=== PATIENT | female | born 1955 | race Caucasian/White ===

== ENCOUNTER → 2017-03-13 | Outpatient (CLI) | payer OTHER ==
[~2017-03-13] MED LIST: FLX10 PO; LRT5 PO
== END | disposition home or self-care (01) ==
LOC: C.LAB1850 15:21
PROVIDERS: ATTEND Internal Medicine
DX: E06.3 Autoimmune thyroiditis (principal)

== ENCOUNTER 2017-10-06 13:10 | Emergency (ER) | payer OTHER ==
[~2017-10-06] VITALS: Ht 157.5 cm; Wt 68.9 kg
[2017-10-06 13:14] VITALS: Ht 157.5 cm; Wt 68.9 kg
[2017-10-06] MEDS ORDERED: SODIUM CHLORIDE 0.9% 1000ML 2,000 ML IV STA (13:23)
[2017-10-06] MEDS ORDERED: ONDANSETRON INJ 2 MG/ML 2 ML VIAL IV STA (13:23)
[2017-10-06 13:45] LABS: BASO % 0.4 %; BASO ABS # 0.02 K/uL (0-0.2); EOS % 3.1 %; EOS ABS # 0.17 K/uL (0-0.5); HEMATOCRIT 43.5 % (37-47); HEMOGLOBIN 15.2 g/dL (12.0-16.0); IG# 0.01 K/uL (0.00-0.02); LYMPH % 38.4 %; LYMPH ABS # 2.14 K/uL (1.2-3.4); MEAN CELL VOLUME 89.9 fL (80-100); MEAN CORPUSCULAR HEMOGLOBIN 31.4 pg (25-34); MEAN CORPUSCULAR HGB CONC 34.9 g/dl (32-36); MEAN PLATELET VOLUME 9.7 fL (7.4-10.4); MONO % 12.7 %; MONO ABS # 0.71 K/uL (0.11-0.59); NEUT % 45.2 %; NEUT ABS # 2.52 K/uL (1.4-6.5); PLATELET COUNT 259 K/uL (130-400); RED CELL DISTRIBUTION WIDTH SD 42.5 fL (36.4-46.3); WHITE BLOOD COUNT 5.57 K/uL (4.8-10.8)
[2017-10-06] MEDS ORDERED: ACETAMINOPHEN 500 MG TAB PO STA (13:45)
[2017-10-06] MEDS ORDERED: LEVO75CA2 PO (13:46)
[2017-10-06 14:10] LABS: ALBUMIN 3.7 gm/dl (3.4-5.0); CALCIUM 8.7 mg/dl (8.5-10.1); CREATININE 0.88 mg/dl (0.60-1.20); POTASSIUM 3.3 mmol/L (3.5-5.1)
[2017-10-06] MEDS ORDERED: OPTIRAY 320 IV PRN (14:45)
[2017-10-06] MEDS ORDERED: POTASSIUM CHLORIDE 10 MEQ TABCR PO STA (15:17)
[2017-10-06 15:38] VITALS: BP 128/73; PULSE 70; TEMP 36.8; O2SAT 99
--- NOTE | 2017-10-06 17:08 | EMERGENCY ROOM VISIT NOTE ---
History Report prepared by Kel: Aubrey Boateng Under the Supervision of: Jane ChO. First contact with patient: 13:18 Chief Complaint: DIARRHEA Stated Complaint: SEVERE DIARRHEA History of Present Illness The patient is a 62 year old female who presents to the Emergency Room with complaints of worsening diarrhea that began Thursday, 3 days ago. The patient states that she ate "fried vegan food" on Thursday and then began to experience loose stools. On Thursday her symptoms worsened to "raging" diarrhea. She estimates that she has had 5 loose bowel movements so far today. The patient also notes that she felt feverish last night, but did not record any febrile temperatures. She is also having some abdominal pain that she states is localized under her left breast. Other members of her family did eat the same food and are not sick. She denies any recent trips/travels, drinking from stream /well water, or contacts with sick individuals. Source of History: patient Onset: 3 days ago Position: abdomen Symptom Intensity: "raging" Quality: other (Diarrhea) Timing: other (5 bouts of diarrhea today) Associated Symptoms: + abdominal pain Review of Systems See HPI for pertinent positives & negatives. A total of 10 systems reviewed and were otherwise negative. Past Medical & Surgical Hx of hysterectomy and thyroidectomy. Social History Smoking Status: Never Smoker Drug Use: none Marital Status: Housing Status: lives with significant other Occupation Status: retired Current/Historical Medications Scheduled Levothyroxine Sodium (Tirosint), 75 MCG PO DAILY Allergies Coded Allergies: Codeine (Unverified Allergy, Mild, 10/06/17) Sulfa Antibiotics (Unverified Allergy, Unknown, ., 10/06/17) Physical Exam Vital Signs Date Time Temp Pulse Resp B/P (MAP) Pulse Ox O2 Delivery O2 Flow Rate FiO2 10/06/17 15:38 36.8 70 18 128/73 99 10/06/17 14:36 70 18 128/73 99 Room Air 10/06/17 13:14 36.8 75 18 125/82 99 Room Air Physical Exam GENERAL: Sitting up in bed, alert, well appearing, well nourished, no distress, non-toxic EYE EXAM: normal conjunctiva. OROPHARYNX: no exudate, no erythema, lips, buccal mucosa, and tongue normal and mucous membranes are moist NECK: supple, no nuchal rigidity, no adenopathy, non-tender LUNGS: Clear to auscultation. Normal chest wall mechanics HEART: no murmurs, S1 normal and S2 normal ABDOMEN: abdomen soft, faint diffuse tenderness, normo-active bowel sounds, no masses, no rebound or guarding. BACK: Back is symmetrical on inspection and there is no deformity, no midline tenderness, no CVA tenderness. SKIN: no rashes and no bruising UPPER EXTREMITIES: upper extremities are grossly normal. LOWER EXTREMITIES: No pitting edema. NEURO EXAM: Normal sensorium, cranial nerves II-XII grossly intact, normal speech, no gross weakness of arms, no gross weakness of legs. Medical Decision & Procedures Laboratory Results 10/06/17 13:30 Red Blood Count 4.84, Mean Corpuscular Volume 89.9, Mean Corpuscular Hemoglobin 31.4, Mean Corpuscular Hemoglobin Concent 34.9, Mean Platelet Volume 9.7, Neutrophils (%) (Auto) 45.2, Lymphocytes (%) (Auto) 38.4, Monocytes (%) (Auto) 12.7, Eosinophils (%) (Auto) 3.1, Basophils (%) (Auto) 0.4, Neutrophils # (Auto ) 2.52, Lymphocytes # (Auto) 2.14, Monocytes # (Auto) 0.71, Eosinophils # (Auto ) 0.17, Basophils # (Auto) 0.02 10/06/17 13:30 Test 10/06/17 13:15 10/06/17 13:30 Urine Color DK YELLOW Urine Appearance CLEAR (CLEAR) Urine pH 5.5 (4.5-7.5) Urine Specific [place] 1.024 (1.000-1.030) Urine Protein NEG (NEG) Urine Glucose (UA) NEG (NEG) Urine Ketones 3+ (NEG) Urine Occult Blood NEG (NEG) Urine Nitrite NEG (NEG) Urine Bilirubin NEG (NEG) Urine Urobilinogen NEG (NEG) Urine Leukocyte Esterase TRACE (NEG) Urine WBC (Auto) 1-5 /hpf (0-5) Urine RBC (Auto) 0-4 /hpf (0-4) Urine Hyaline Casts (Auto) 1-5 /lpf (0-5) Urine Epithelial Cells (Auto) >30 /lpf (0-5) Urine Bacteria (Auto) NEG (NEG) Urine Test NEG (NEG) White Blood Count 5.57 K/uL (4.8-10.8) Red Blood Count 4.84 M/uL (4.2-5.4) Hemoglobin 15.2 g/dL (12.0-16.0) Hematocrit 43.5 % (37-47) Mean Corpuscular Volume 89.9 fL (80-100) Mean Corpuscular Hemoglobin 31.4 pg (25-34) Mean Corpuscular Hemoglobin Concent 34.9 g/dl (32-36) Platelet Count 259 K/uL (130-400) Mean Platelet Volume 9.7 fL (7.4-10.4) Neutrophils (%) (Auto) 45.2 % Lymphocytes (%) (Auto) 38.4 % Monocytes (%) (Auto) 12.7 % Eosinophils (%) (Auto) 3.1 % Basophils (%) (Auto) 0.4 % Neutrophils # (Auto) 2.52 K/uL (1.4-6.5) Lymphocytes # (Auto) 2.14 K/uL (1.2-3.4) Monocytes # (Auto) 0.71 K/uL (0.11-0.59) Eosinophils # (Auto) 0.17 K/uL (0-0.5) Basophils # (Auto) 0.02 K/uL (0-0.2) RDW Standard Deviation 42.5 fL (36.4-46.3) RDW Coefficient of Variation 13.0 % (11.5-14.5) Immature Granulocyte % (Auto) 0.2 % Immature Granulocyte # (Auto) 0.01 K/uL (0.00-0.02) Anion Gap 9.0 mmol/L (3-11) Est Creatinine Clear Calc Drug Dose 58.8 ml/min Estimated GFR () 80.5 Estimated GFR (Non- 69.4 BUN/Creatinine Ratio 16.6 (10-20) Calcium Level 8.7 mg/dl (8.5-10.1) Total Bilirubin 1.1 mg/dl (0.2-1) Direct Bilirubin 0.2 mg/dl (0-0.2) Aspartate Amino Transf (AST/SGOT) 24 U/L (15-37) Alanine Aminotransferase (ALT/SGPT) 36 U/L (12-78) Alkaline Phosphatase 81 U/L (45-117) Total Protein 8.0 gm/dl (6.4-8.2) Albumin 3.7 gm/dl (3.4-5.0) Lipase 106 U/L (73-393) Date/Time Source Procedure Growth Status 10/06/17 13:15 Stool C.difficile Toxin B Gene (PCR) - Final No C. difficile toxin B gene detected Complete Laboratory results per my review. Medications Administered Medications (Trade) Dose Ordered Sig/Yvan Route Start Time Stop Time Status Last Admin Dose Admin Sodium Chloride 2,000 ml @ 999 mls/hr Q2H1M STAT IV 10/06/17 13:23 10/06/17 15:23 DC 10/06/17 13:42 999 MLS/HR Ondansetron HCl (Zofran Inj) 4 mg NOW STAT IV 10/06/17 13:23 10/06/17 13:25 DC 10/06/17 13:42 4 MG Acetaminophen (Tylenol Tab) 1,000 mg NOW STAT PO 10/06/17 13:45 10/06/17 13:46 DC 10/06/17 13:49 1,000 MG ED Course ED COURSE: Vital signs were reviewed and showed normal vitals. The patients medical record was reviewed The above diagnostic studies were performed and reviewed. ED treatments and interventions as stated above. 1319: The patient was evaluated in room B9. A complete history and physical examination was performed. 1323: Ordered Zofran 4 mg IV, Sodium Chloride 2000 mL @ 999 mL/hr IV. 1345: Ordered Tylenol 1000 mg PO. 1509: I offered the patient at CT at this time. She states that due to her alopecia she does not want to lose any more hair. She declines the CT scan. 1517: Ordered Potassium Chloride 40 meq PO. 1532: Upon reevaluation, the patient is resting in bed. I discussed my findings with the patient and she understands and agrees with the treatment plan. Based on the patients age, coexisting illnesses, exam and lab findings the decision to treat as an outpatient was made. The patient remained stable while under my care. The patient appeared well at the time of discharge. Medical Decision Differential diagnoses includes but is not limited to gastritis, peptic ulcer disease, GERD, gallbladder disease, pancreatitis, small bowel obstruction, acute coronary syndrome, pericarditis, ischemic bowel, irritable bowel disease, irritable bowel syndrome, appendicitis, diverticulitis, malignancy, hernia, urinary tract infection, torsion, /ectopic , perforation, trauma, infectious. Patient is a 62-year-old female who presents the ER for persistent diarrhea which is been present since Thursday. She notes that today she is very on 5 times. Vitals are unremarkable. CBC was unremarkable. BMP with mild hypokalemia. LFTs, bilirubin lipase were normal. UA was negative. was negative. Stool culture pending with exception of a negative C. difficile. Patient declined CT and x-rays of her abdomen. She was agreeable to Tylenol. Repeat exam was fairly benign. She is updated bedside. Discharge follow-up with PCP as an outpatient. Stool cultures pending. Discussed with Pt concerning signs and symptoms to watch out for. Pt was instructed to follow up with their PCP and discussed with the patient their option to return to the ED at anytime for persistent or worsening symptoms. The appropriate anticipatory guidance and out-patient management, including indications for return to the emergency department, were explained at length to the patient and understood. Medication Reconcilliation Current Medication List: was personally reviewed by me Blood Pressure Screening Patient's blood pressure: Normal blood pressure Impression Primary Impression: Diarrhea Additional Impression: Hypokalemia Scribe Attestation The scribe's documentation has been prepared under my direction and personally reviewed by me in its entirety. I confirm that the note above accurately reflects all work, treatment, procedures, and medical decision making performed by me. Departure Information Dispostion Home / Self-Care Referrals No Doctor, Assigned (PCP) Forms HOME CARE DOCUMENTATION FORM, IMPORTANT VISIT INFORMATION, WORK / SCHOOL INSTRUCTIONS Patient Instructions [facility] Additional Instructions Please follow up with your primary care doctor with in the next 24 hours. Any worsening of your symptoms, please return to the ED immediately. This includes any fevers greater than 100.4, worsening pain, chest pain, shortness breath, persistent nausea, vomiting, unable to eat or drink, or any other concerning signs or symptoms from your standpoint. Please take Tylenol or Motrin as needed for pain. Please try to refrain from any antimotility i.e. Imodium until all stool cultures are resulted. Problem Qualifiers Primary Impression: Diarrhea Diarrhea type: unspecified type Qualified Codes: R19.7 - Diarrhea, unspecified
--- NOTE | 2017-10-09 15:53 | Pharmacy Progress Note ---
ED Pharmacist Culture FollowUp Date of Service: Oct 09, 2017. Talked to Dr. Braswell regarding positive result for Giardia- to be prescribed tinidazole 2 g orally as a single dose. Called [facility] and they did have it in stock. Called to discuss with patient. Patient understood instructions but was disconnected. Patient called back and said that [facility] had already called and that a prescription was ready. I did had not yet called in a prescription so I called [facility] to see what the prescription was for and the prescriber. The prescription was for metronidazole 500 mg BID x [address] Muñoz (sp?). Called patient back and let her know that a different medication had been called in that is similar by her family doctor. She was okay with getting the prescription from her family doctor. Will not call in prescription for tinidazole.
== END 2017-10-06 15:39 | disposition home or self-care (01) ==
LOC: C.EDB 13:11
DX: R19.7 Diarrhea, unspecified (principal); E87.6 Hypokalemia; Z90.710 Acquired absence of both cervix and uterus; E89.0 Postprocedural hypothyroidism; Z79.899 Other long term (current) drug therapy; Z88.5 Allergy status to narcotic agent; Z88.2 Allergy status to sulfonamides

== ENCOUNTER → 2017-10-14 | Outpatient (CLI) | payer OTHER ==
[~2017-10-14] MED LIST changes: -FLX10 PO; +LEVO75CA2 PO; -LRT5 PO
[2017-10-14 18:03] LABS: ALBUMIN 3.2 gm/dl (3.4-5.0); ALKALINE PHOSPHATASE 62 U/L (45-117); ALT/SGPT 44 U/L (12-78); AST/SGOT 33 U/L (15-37); BLOOD UREA NITROGEN 14 mg/dl (7-18); CALCIUM 8.2 mg/dl (8.5-10.1); CARBON DIOXIDE 30 mmol/L (21-32); CREATININE 0.66 mg/dl (0.60-1.20); GLUCOSE 88 mg/dl (70-99); POTASSIUM 3.7 mmol/L (3.5-5.1); SODIUM 143 mmol/L (136-145); TOTAL PROTEIN 6.4 gm/dl (6.4-8.2)
== END | disposition home or self-care (01) ==
LOC: C.LAB1850 16:34
PROVIDERS: ATTEND Internal Medicine
DX: E87.6 Hypokalemia (principal); E87.1 Hypo-osmolality and hyponatremia

== ENCOUNTER 2018-12-12 16:39 | Observation (INO) ==
[2018-12-12] MEDS ORDERED: ASPIRIN CHEW 324 MG PO STA (18:05)
[2018-12-12 18:22] LABS: Basophils # (auto) 0.02 K/uL (0-0.2); Basophils % (auto) 0.2 %; Eosinophils # (auto) 0.17 K/uL (0-0.5); Hematocrit (blood only) 42.6 % (37-47); Hemoglobin 14.4 g/dL (12.0-16.0); Immature Granulocytes # (auto) 0.02 K/uL (0.00-0.02); Immature Granulocytes % (auto) 0.2 %; Lymphocytes # (auto) 2.59 K/uL (1.2-3.4); Lymphocytes % (auto) 30.6 %; Mean Corpuscular Hemoglobin 30.8 pg (25-34); Mean Corpuscular Hgb Conc 33.8 g/dL (32-36); Mean Corpuscular Volume 91.2 fL (80-100); Monocytes # (auto) 0.54 K/uL (0.11-0.59); Monocytes % (auto) 6.4 %; Neutrophils # (auto) 5.13 K/uL (1.4-6.5); Neutrophils % (auto) 60.6 %; Platelet Count 306 K/uL (130-400); RDW Coefficient of Variation 12.7 % (11.5-14.5); RDW Standard Deviation 42.1 fL (36.4-46.3); Red Blood Count 4.67 M/uL (4.2-5.4); White Blood Count 8.47 K/uL (4.8-10.8)
[2018-12-12 18:36] LABS: Prothrombin Time 10.2 Seconds (9.0-12.0)
[2018-12-12 18:38] LABS: Alanine Aminotransferase 24 U/L (12-78); Albumin Level 3.9 gm/dl (3.4-5.0); Aspartate Aminotransferase 16 U/L (15-37); Blood Urea Nitrogen 14 mg/dl (7-18); Calcium 8.6 mg/dl (8.5-10.1); Carbon Dioxide 29 mmol/L (21-32); Chloride 105 mmol/L (98-107); Creatinine Clr Calc Pharmacy 50.6 ml/min; D Dimer 800 ug/L FEU (0-500); Est GFR (African American) 66.8; Est GFR (Non-African American) 57.7; Glucose 82 mg/dl (70-99); Lipase 171 U/L (73-393); Magnesium 2.3 mg/dl (1.8-2.4); Potassium 3.3 mmol/L (3.5-5.1); Sodium 138 mmol/L (136-145)
[2018-12-12 18:49] LABS: Alkaline Phosphatase 83 U/L (45-117); Bilirubin,Total 0.8 mg/dl (0.2-1); Globulin 3.8 gm/dl (2.5-4.0); Thyroid Stimulating Hormone 0.924 uIu/ml (0.300-4.500); Total Protein 7.7 gm/dl (6.4-8.2); Troponin I < 0.015 ng/ml (0-0.045)
[2018-12-12] MEDS ORDERED: OPTIRAY 320 125ml IV PRN (20:07)
--- NOTE | 2018-12-12 20:21 | CT Scan Report ---
CHEST CTA for PULMONARY ARTERIES CT DOSE: 231.35 mGy.cm HISTORY: Atypical chest pain. Short of breath. Positive d-dimer. TECHNIQUE: Multiaxial CT images of the chest were performed following the intravenous administration of contrast to evaluate the pulmonary arteries. Maximal intensity projection images were also obtaine d. A dose lowering technique was utilized adhering to the principles of ALARA. COMPARISON STUDY: None. FINDINGS: A 9 mm gallstone. A few scattered subcentimeter hypodense lesions within the liver. These a re technically too small to characterize but favor cysts. The spleen and adrenal glands appear unrema rkable. Tiny hiatus hernia. Normal esophagus. No mediastinal or hilar lymphadenopathy. The heart is b orderline enlarged. No pleural or pericardial effusions. The right thyroid lobe appears surgically ab sent. No fractures within the visualized osseous structures. Normal caliber thoracic aorta with no ev idence for dissection. No filling defects within the pulmonary arteries to suggest pulmonary embolus. The central airways are patent. No pneumothorax. A few bibasilar linear densities consistent with leslie bsegmental atelectasis. Otherwise, the lungs are clear. IMPRESSION: 1. No evidence for pulmonary embolus. 2. Tiny hiatus hernia. 3. Cholelithiasis. Electronically signed by: Ilan Merida M.D. 12/12/2018 8:18 PM
--- NOTE | 2018-12-12 22:05 | History & Physical Report ---
Date of Service December 12, 2018 Assessment & Plan (1) Chest pain: Exertional chest pain with shortness of breath accompanying- The patient will be admitted to telemetry for serial cardiac enzymes, serial EKG's, cardiac rhythm monitoring and a 2-D echocardiogram with Dopplers. Likely aggravated by hypokalemia. If work-up is negative, should consider stress testing prior to discharge. Present on Admission?: Yes (2) Elevated blood pressure reading without diagnosis of hypertension: Elevated blood pressure with no previous record of hypertension/hypokalemia- Give Klor-Con 40 mEq p.o. x1 now. Repeat BMP and magnesium level in a.m. Check a renin and aldosterone level. Present on Admission?: Yes (3) Hypokalemia: See above Present on Admission?: Yes (4) Fatigue: Patient already has 2 autoimmune disorders: Hypothyroidism and alopecia areata. We will test her for B12 and folic acid deficiencies. We will also test for adrenal insufficiency with a.m. cortisol and ACTH levels Present on Admission?: Yes (5) Fibromyalgia: No flareup at this time. Leg aching is most likely secondary to hypokalemia. But should be followed for potential fibromyalgia flare Present on Admission?: Yes (6) Hypothyroidism: Hypothyroidism/Hurthle cell adenoma of thyroid- Continue levothyroxine sodium (Tirosint) 75 mcg p.o. every morning. Patient is advised to have someone bring her own medication in tomorrow. 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 Present on Admission?: Yes (9) Alopecia areata: Noted as above Present on Admission?: Yes History of Present Illness Chief Complaint: The patient presents to the emergency department with substernal chest discomfort that initially began the previous evening, and extended into the day today. Primary Care Provider: Paulie Cortez MD The patient is a 63-year-old female with a past medical history including hypothyroidism, Hurthle cell adenoma of thyroid, alopecia areata and fibromyalgia, who presents to the emergency department with the development of exertional chest precordial chest pain with occasional radiation into the left side of neck last evening, and persistence into the day and evening today. She has not had chest discomfort prior to this. She does have some generalized aching in her legs, and fatigue. She has not had any recent travels or sick exposures. The chest discomfort is associated with shortness of breath and worsened by dyspnea on exertion. Allergies Allergy/AdvReac Type Severity Reaction Status Date / Time codeine Allergy Mild Unknown Unverified 12/12/18 18:02 Sulfa (Sulfonamide Allergy Unknown . Unverified 12/12/18 18:02 Antibiotics) levothyroxine AdvReac Verified 12/12/18 18:02 Home Medications Home Medications Medication Instructions Recorded Confirmed Type ascorbic acid (vitamin C) [Vitamin 3 g PO TID 12/12/18 12/12/18 History C] levothyroxine [Tirosint] 75 mcg PO QAM 12/12/18 12/12/18 History Past Med/Surg History Medical History Alopecia areata (Acute) Claustrophobia (Acute) Fatigue (Acute) Fibromyalgia (Acute) Hurthle cell adenoma of thyroid (Acute) Hypothyroidism (Acute) Insomnia (Acute) Lymphedema (Acute) Menopause (Acute) Need for hepatitis C screening test (Acute) Osteopenia (Acute) Right knee pain (Acute) Vitamin D deficiency disease (Acute) Diarrhea (Acute) Hypokalemia (Acute) Alopecia H/O: hysterectomy Surgical History H/O partial thyroidectomy Family History Other Cancer Social History Preferred Language: Marshallese Alpine Patroller Required: No Beliefs That Will Affect Care: None Current Living Situation: Spouse Feels Safe at Home: Hesitant to Answer Safety Concerns: Feels Safe At This Time Smoking Status: Never smoker Hx Alcohol Use: Yes ("occasionally") Hx Substance Use: No Review of Systems Review of Systems: The patient denies palpitations, cough, lower extremity swelling, sore throat, fevers, chills, sweats, ausea, vomiting, diarrhea , constipation, abdominal pain, pelvic pain, blood in urine or stool, dysuria, urinary frequency or urgency, lightheadedness, dizziness, headache, memory loss, loss of consciousness, rash, abnormal bruising or bleeding, imbalance, focal or generalized weakness, numbness or tingling in arms or legs, back or neck pain, or night sweats. The review of systems is otherwise negative other than for that already noted above, and at least 10 systems have been reviewed. Physical Exam Physical Exam: The patient is awake, alert and oriented 3, well developed and well nourished, normocephalic and atraumatic, lying in bed and in no acute distress. HEENT--PERRL, EOMI, mucous membranes and oropharynx normal. Neck--supple. No JVD. No bruits. Thyroid normal, trachea midline, no adenopathy. Heart--normal S1 and S2. No murmurs, rubs or gallops. Lungs--clear bilaterally, no respiratory distress, no accessory muscle use. Abdomen--normal bowel sounds and soft. Nontender. Nondistended, no hernias or masses, no organomegaly. Extremities--no cyanosis or clubbing. No edema. There are good distal pulses b/l. Dermatologic--normal skin turgor, normal color, no abnormal lymph nodes, no rash. Neurologic--cranial nerves II through XII grossly intact. Rheumatologic--normal range of motion. Psychiatric--normal affect. Results & Data Vital Signs (Past 12 Hours) Vital Signs Temp Pulse Resp BP Pulse Ox 12/12/18 20:30 71 22 148/81 H 100 12/12/18 20:26 71 19 144/83 H 99 12/12/18 19:00 60 21 130/76 99 12/12/18 18:30 61 18 145/80 H 100 12/12/18 18:18 61 25 H 149/86 H 100 12/12/18 17:50 100 12/12/18 16:41 98.1 F 66 20 150/88 H 100 Laboratory Results Laboratory Results WBC 8.47 K/uL (4.8-10.8) 12/12/18 18:07 RBC 4.67 M/uL (4.2-5.4) 12/12/18 18:07 Hgb 14.4 g/dL (12.0-16.0) 12/12/18 18:07 Hct 42.6 % (37-47) 12/12/18 18:07 MCV 91.2 fL (80-100) 12/12/18 18:07 MCH 30.8 pg (25-34) 12/12/18 18:07 MCHC 33.8 g/dL (32-36) 12/12/18 18:07 RDW Std Deviation 42.1 fL (36.4-46.3) 12/12/18 18:07 RDW Coeff of [place]erm[place] 12.7 % (11.5-14.5) 12/12/18 18:07 Plt Count 306 K/uL (130-400) 12/12/18 18:07 MPV 10.0 fL (7.4-10.4) 12/12/18 18:07 Immature Gran % (Auto) 0.2 % 12/12/18 18:07 Neut % (Auto) 60.6 % 12/12/18 18:07 Lymph % (Auto) 30.6 % 12/12/18 18:07 [place] % (Auto) 6.4 % 12/12/18 18:07 Eos % (Auto) 2.0 % 12/12/18 18:07 Baso % (Auto) 0.2 % 12/12/18 18:07 Immature Gran # (Auto) 0.02 K/uL (0.00-0.02) 12/12/18 18:07 Neut # (Auto) 5.13 K/uL (1.4-6.5) 12/12/18 18:07 Lymph # (Auto) 2.59 K/uL (1.2-3.4) 12/12/18 18:07 [place] # (Auto) 0.54 K/uL (0.11-0.59) 12/12/18 18:07 Eos # (Auto) 0.17 K/uL (0-0.5) 12/12/18 18:07 Baso # (Auto) 0.02 K/uL (0-0.2) 12/12/18 18:07 PT 10.2 Seconds (9.0-12.0) 12/12/18 18:07 INR 1.0 (0.9-1.1) 12/12/18 18:07 APTT 27.0 Seconds (21.0-31.0) 12/12/18 18:07 PTT Ratio 1.0 12/12/18 18:07 D-Dimer 800 ug/L FEU (0-500) H* 12/12/18 18:07 D-Dimer Cancelled 12/12/18 18:07 Sodium 138 mmol/L (136-145) 12/12/18 18:07 Potassium 3.3 mmol/L (3.5-5.1) L 12/12/18 18:07 Chloride 105 mmol/L (98-107) 12/12/18 18:07 Carbon Dioxide 29 mmol/L (21-32) 12/12/18 18:07 Anion Gap 4.0 (3-11) 12/12/18 18:07 BUN 14 mg/dl (7-18) 12/12/18 18:07 Creatinine 1.02 mg/dl (0.6-1.2) 12/12/18 18:07 Est Cr Clr Drug Dosing 50.6 ml/min 12/12/18 18:07 Est GFR ( Amer) 66.8 12/12/18 18:07 Est GFR (Non-Af Amer) 57.7 12/12/18 18:07 BUN/Creatinine Ratio 14.0 (10-20) 12/12/18 18:07 Glucose 82 mg/dl (70-99) 12/12/18 18:07 Calcium 8.6 mg/dl (8.5-10.1) 12/12/18 18:07 Magnesium 2.3 mg/dl (1.8-2.4) 12/12/18 18:07 Total Bilirubin 0.8 mg/dl (0.2-1) 12/12/18 18:07 AST 16 U/L (15-37) 12/12/18 18:07 ALT 24 U/L (12-78) 12/12/18 18:07 Alkaline Phosphatase 83 U/L (45-117) 12/12/18 18:07 Troponin I < 0.015 ng/ml (0-0.045) 12/12/18 23:26 Total Protein 7.7 gm/dl (6.4-8.2) 12/12/18 18:07 Albumin 3.9 gm/dl (3.4-5.0) 12/12/18 18:07 Globulin 3.8 gm/dl (2.5-4.0) 12/12/18 18:07 Albumin/Globulin Ratio 1.0 (0.9-2) 12/12/18 18:07 Lipase 171 U/L (73-393) 12/12/18 18:07 Folate 18.26 ng/ml (>5.38) 12/12/18 23:26 TSH 0.924 uIu/ml (0.300-4.500) 12/12/18 18:07 Free T4 1.14 ng/dl (0.8-1.6) 12/12/18 18:07 Free T3 2.78 pg/ml (2.3-4.2) 12/12/18 18:07 Urine Color Yellow 12/12/18 23:43 Urine Appearance Clear (Clear) 12/12/18 23:43 Urine pH 5.5 (4.5-7.5) 12/12/18 23:43 Ur Specific [place] <= 1.005 (1.000-1.030) 12/12/18 23:43 Urine Protein Negative (Negative) 12/12/18 23:43 Urine Glucose (UA) Negative (Negative) 12/12/18 23:43 Urine Ketones Negative (Negative) 12/12/18 23:43 Urine Blood Negative (Negative) 12/12/18 23:43 Urine Nitrite Negative (Negative) 12/12/18 23:43 Urine Bilirubin Negative (Negative) 12/12/18 23:43 Urine Urobilinogen Negative (Negative) 12/12/18 23:43 Ur Leukocyte Esterase 1+ (Negative) H 12/12/18 23:43 Urine RBC 0-4 /hpf (0-4) 12/12/18 23:43 Urine WBC 10-30 /hpf (0-5) H 12/12/18 23:43 Ur Epithelial Cells 5-10 /lpf (0-5) H 12/12/18 23:43 Other Crystals Hippuric Acid (None Prsent) A 12/12/18 23:43 Urine Bacteria Negative (Negative) 12/12/18 23:43 Diagnostic Findings [place], [place] [phone] CT Scan Report Patient: Mónica CHAVARRIA Date: 12/12/18 MR#: [id number]: Shaunna LINDSEY Acct ID:[id number]: [facility] Zip: [place] [address] Age: 63Location: ED Sex: F Room/Bed: Att Phy:Diagnosis: CHEST PAIN DIZZY Johanna Phy: RV. Nicol, MDService Date: 12/12/18 [facility] Phy:Interpreting Phy: Ilan Merida MD Admit Phy: Ordering Phy: Jesús Braswell M.D. cc: ~ CHEST CTA for PULMONARY ARTERIES CT DOSE: 231.35 mGy.cm HISTORY: Atypical chest pain. Short of breath. Positive d-dimer. TECHNIQUE: Multiaxial CT images of the chest were performed following the intravenous administration of contrast to evaluate the pulmonary arteries. Maximal intensity projection images were also obtained. A dose lowering technique was utilized adhering to the principles of ALARA. COMPARISON STUDY: None. FINDINGS: A 9 mm gallstone. A few scattered subcentimeter hypodense lesions wi thin the liver. These are technically too small to characterize but favor cysts. The spleen and adrenal glands appear unremarkable. Tiny hiatus hernia. Normal esophagus. No mediastinal or hilar lymphadenopathy. The heart is borderline enlarged. No pleural or pericardial effusions. The right thyroid lobe appears surgically absent. No fractures within the visualized osseous structures. Normal caliber thoracic aorta with no evidence for dissection. No filling defects within the pulmonary arteries to suggest pulmonary embolus. The central airways are patent. No pneumothorax. A few bibasilar linear densities consistent with subsegmental atelectasis. Otherwise, the lungs are clear. IMPRESSION: 1. No evidence for pulmonary embolus. 2. Tiny hiatus hernia. 3. Cholelithiasis. Electronically signed by: Ilan Merida M.D. 12/12/2018 8:18 PM Dictated: 12/12/182007 Transcribed: 12/12/182007 Code Status & VTE Plan Code Status Full code VTE Prophylaxis Plan VTE Prophylaxis will be ordered: Yes PG Care Time/CCT Total # of Minutes Spent Total Time Spent with Patient: Total time spent is greater than 50% in coordination of care (as documented) at patient's floor/unit and/or counseling patient: (1) Chest pain Chest pain type: unspecified Qualified Code(s): R07.9 - Chest pain, unspecified
[2018-12-12] MEDS ORDERED: POTASSIUM CHLORIDE 20 MEQ TABCR PO STA (22:06)
[2018-12-12] MEDS ORDERED: ONDANSETRON INJ 2 MG/ML 2 ML VIAL IV PRN (23:04)
[2018-12-12 23:54] LABS: Appearance Urine Clear (Clear); Bilirubin Urine Negative (Negative); Blood Urine Negative (Negative); Color Urine Yellow; Glucose Urine UA Negative (Negative); Ketones Urine Negative (Negative); Leukocyte Esterase Urine 1+ (Negative); Nitrite Urine Negative (Negative); Protein Urine Negative (Negative); Specific Gravity Urine <= 1.005 (1.000-1.030); Urobilinogen Urine Negative (Negative); pH Urine 5.5 (4.5-7.5)
[2018-12-13 00:08] LABS: Bacteria Urine Negative (Negative); RBC Urine 0-4 /hpf (0-4)
--- NOTE | 2018-12-13 00:40 | Emergency Department Note ---
Entered by Sharon Ku acting as a scribe for History of Present Illness General Chief complaint: Chest Pain Source: patient History of Present Illness Onset (ago): day(s) (yesterday) Location: chest Radiation: back, neck and other (head, kidney areas) Pain Consistency: + other (worsening) Maximum Pain Intensity: 6 Quality: + other (heavy pressure) Exacerbated By: + movement (head movement) Associated symptoms: + denies other symptoms (cold symptoms, cough, leg swelling), + fever/chills (negative fever, positive chills), + loss of appetite, + nausea/vomiting and + other (muscle aches) The patient is a 63 year old female who presents to the Emergency Room with complaints of worsening chest pain beginning yesterday. The patient reports the pain as a heavy pressure extending to her back, neck, head, and kidney areas beginning today. She denies the pain radiating into her arms. She states the pain increases with head movement. She notes difficulty walking up hills and stairs. The patient reports a decreased appetite, chills, and nausea. The patient denies cold symptoms, cough, fever, leg swelling, recent travel, and a history of smoking. The patient notes taking Advil several days ago for muscle aches. She also notes an unusual bowel movement last night. The patient reports a allergy to adhesives, and gluten sensitivity. 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 She reports currently taking thyroid medication. The patient states her hair falls out whenever she has an x-ray. Home Medications Home Medications Medication Instructions Recorded Confirmed Type ascorbic acid (vitamin C) [Vitamin 3 g PO TID 12/12/18 12/12/18 History C] levothyroxine [Tirosint] 75 mcg PO QAM 12/12/18 12/12/18 History Allergies Allergy/AdvReac Type Severity Reaction Status Date / Time codeine Allergy Mild Unknown Unverified 12/12/18 18:02 Sulfa (Sulfonamide Allergy Unknown . Unverified 12/12/18 18:02 Antibiotics) levothyroxine AdvReac Verified 12/12/18 18:02 Past Med/Surg History Medical History Alopecia areata (Acute) Claustrophobia (Acute) Fatigue (Acute) Fibromyalgia (Acute) Hurthle cell adenoma of thyroid (Acute) Hypothyroidism (Acute) Insomnia (Acute) Lymphedema (Acute) Menopause (Acute) Need for hepatitis C screening test (Acute) Osteopenia (Acute) Right knee pain (Acute) Vitamin D deficiency disease (Acute) Diarrhea (Acute) Hypokalemia (Acute) Alopecia H/O: hysterectomy Surgical History H/O partial thyroidectomy Family History Other Cancer Social History Preferred Language: Spanish 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 and A total of 10 systems reviewed and were otherwise negative Physical Exam Vital Signs Vital Signs - 24 hr 12/12/18 16:41 12/12/18 17:50 12/12/18 18:18 Temperature 36.7 C Temperature Source Oral Sepsis Recent Fever Within 48 Hours No Sepsis Action Taken by Nursing No Action Required Pulse Rate 66 61 Pulse Rate from SpO2 Sensor 61 Pulse Rhythm Regular Pulse Strength Normal Respiratory Rate 20 25 H Respiratory Effort / Characteristics Non-Labored Spontaneous Respiratory Depth Normal Respiratory Pattern Regular Blood Pressure 150/88 H 149/86 H Blood Pressure Mean 108 107 Blood Pressure Position Sitting Pulse Oximetry 100 100 100 Oxygen Delivery Method Room Air Room Air 12/12/18 18:30 12/12/18 19:00 12/12/18 20:26 Temperature Temperature Source Sepsis Recent Fever Within 48 Hours Sepsis Action Taken by Nursing Pulse Rate 61 60 71 Pulse Rate from SpO2 Sensor 61 60 71 Pulse Rhythm Pulse Strength Respiratory Rate 18 21 19 Respiratory Effort / Characteristics Respiratory Depth Respiratory Pattern Blood Pressure 145/80 H 130/76 144/83 H Blood Pressure Mean 101 94 103 Blood Pressure Position Pulse Oximetry 100 99 99 Oxygen Delivery Method Room Air Room Air 12/12/18 20:30 Temperature Temperature Source Sepsis Recent Fever Within 48 Hours Sepsis Action Taken by Nursing Pulse Rate 71 Pulse Rate from SpO2 Sensor 70 Pulse Rhythm Pulse Strength Respiratory Rate 22 Respiratory Effort / Characteristics Respiratory Depth Respiratory Pattern Blood Pressure 148/81 H Blood Pressure Mean 103 Blood Pressure Position Pulse Oximetry 100 Oxygen Delivery Method GENERAL: Awake, alert, fatigued-appearing HENT: Normocephalic, atraumatic. EYES: Normal conjunctiva. Sclera non-icteric. NECK: Slight left-sided tenderness. No masses. Supple. No nuchal rigidity. RESPIRATORY: Clear to auscultation. No wheezes. Normal respiratory effort. CARDIAC: Normal rate. Normal rhythm. Extremities warm and well perfused. GI: Soft, non-distended. Slight upper abdominal tenderness. No rebound or guarding. No masses. RECTAL: Deferred. MUSCULOSKELETAL: Atraumatic. Slight lower chest tenderness. LOWER EXTREMITIES: Calves are equal size bilaterally and non-tender. No edema NEURO: Normal sensorium. No sensory or motor deficits noted. No facial droop. SKIN: Warm and dry. No rash or jaundice noted. Course 1800: Past medical records reviewed. The patient was evaluated in room B10. A complete history and physical exam was performed. 1909: Upon reevaluation, the patient was resting comfortably. I discussed findings and results with the patient. 1943: Upon reevaluation, the patient was resting comfortably. I discussed findings and results with the patient. 2030: Upon reevaluation, I discussed findings and results with the patient. She verbalized agreement of the treatment plan. I spoke with Dr. Mireles of the [facility] Hospitalist Service. The patient will be evaluated for further management and care. Administered Medications Ioversol (Optiray 320 125ml) 98 ml IV ONCE PRN PRN Reason: Interaction Checking Stop: 12/16/18 20:06 Last Admin: 12/12/18 20:07 Dose: 98 ml Documented by: [id number] Discontinued Medications Aspirin (Aspirin) 324 mg PO NOW STA Stop: 12/12/18 18:06 Last Admin: 12/12/18 18:22 Dose: 324 mg Documented by: [id number] Medical Decision Making Differential Diagnosis Differential diagnoses includes but is not limited to gastritis, peptic ulcer di sease, GERD, gallbladder disease, pancreatitis, small bowel obstruction, acute coronary syndrome, pericarditis, ischemic bowel, irritable bowel disease, irritable bowel syndrome, appendicitis, diverticulitis, malignancy, hernia, urinary tract infection, torsion, /ectopic , perforation, trauma, infectious. Medical Records Attestation: I reviewed the patient's medical records. Home Medications Current Medication List: was personally reviewed by me Laboratory Data Attestation: I reviewed the patient's lab results. Result diagrams: 12/12/18 18:07 12/12/18 18:07 Lab Results 12/12/18 12/12/18 12/12/18 Range/Units 18:07 18:07 18:07 WBC 8.47 (4.8-10.8) K/uL RBC 4.67 (4.2-5.4) M/uL Hgb 14.4 (12.0-16.0) g/dL Hct 42.6 (37-47) % MCV 91.2 (80-100) fL MCH 30.8 (25-34) pg MCHC 33.8 (32-36) g/dL RDW Std Deviation 42.1 (36.4-46.3) fL RDW Coeff of Kermit 12.7 (11.5-14.5) % Plt Count 306 (130-400) K/uL MPV 10.0 (7.4-10.4) fL Immature Gran % (Auto) 0.2 % Neut % (Auto) 60.6 % Lymph % (Auto) 30.6 % Clarke % (Auto) 6.4 % Eos % (Auto) 2.0 % Baso % (Auto) 0.2 % Immature Gran # (Auto) 0.02 (0.00-0.02) K/uL Neut # (Auto) 5.13 (1.4-6.5) K/uL Lymph # (Auto) 2.59 (1.2-3.4) K/uL Clarke # (Auto) 0.54 (0.11-0.59) K/uL Eos # (Auto) 0.17 (0-0.5) K/uL Baso # (Auto) 0.02 (0-0.2) K/uL PT 10.2 (9.0-12.0) Seconds INR 1.0 (0.9-1.1) APTT 27.0 (21.0-31.0) Seconds PTT Ratio 1.0 D-Dimer 800 H* (0-500) ug/L FEU Sodium 138 (136-145) mmol/L Potassium 3.3 L (3.5-5.1) mmol/L Chloride 105 (98-107) mmol/L Carbon Dioxide 29 (21-32) mmol/L Anion Gap 4.0 (3-11) BUN 14 (7-18) mg/dl Creatinine 1.02 (0.6-1.2) mg/dl Est Cr Clr Drug Dosing 50.6 ml/min Est GFR ( Amer) 66.8 Est GFR (Non-Af Amer) 57.7 BUN/Creatinine Ratio 14.0 (10-20) Glucose 82 (70-99) mg/dl Calcium 8.6 (8.5-10.1) mg/dl Magnesium 2.3 (1.8-2.4) mg/dl Total Bilirubin 0.8 (0.2-1) mg/dl AST 16 (15-37) U/L ALT 24 (12-78) U/L Alkaline Phosphatase 83 (45-117) U/L Troponin I < 0.015 (0-0.045) ng/ml Total Protein 7.7 (6.4-8.2) gm/dl Albumin 3.9 (3.4-5.0) gm/dl Globulin 3.8 (2.5-4.0) gm/dl Albumin/Globulin Ratio 1.0 (0.9-2) Lipase 171 (73-393) U/L TSH 0.924 (0.300-4.500) uIu/ml Free T4 (0.8-1.6) ng/dl Free T3 (2.3-4.2) pg/ml 12/12/18 12/12/18 12/12/18 Range/Units 18:07 18:07 18:07 WBC (4.8-10.8) K/uL RBC (4.2-5.4) M/uL Hgb (12.0-16.0) g/dL Hct (37-47) % MCV (80-100) fL MCH (25-34) pg MCHC (32-36) g/dL RDW Std Deviation (36.4-46.3) fL RDW Coeff of Kermit (11.5-14.5) % Plt Count (130-400) K/uL MPV (7.4-10.4) fL Immature Gran % (Auto) % Neut % (Auto) % Lymph % (Auto) % Clarke % (Auto) % Eos % (Auto) % Baso % (Auto) % Immature Gran # (Auto) (0.00-0.02) K/uL Neut # (Auto) (1.4-6.5) K/uL Lymph # (Auto) (1.2-3.4) K/uL Clarke # (Auto) (0.11-0.59) K/uL Eos # (Auto) (0-0.5) K/uL Baso # (Auto) (0-0.2) K/uL PT (9.0-12.0) Seconds INR (0.9-1.1) APTT (21.0-31.0) Seconds PTT Ratio D-Dimer Cancelled (0-500) ug/L FEU Sodium (136-145) mmol/L Potassium (3.5-5.1) mmol/L Chloride (98-107) mmol/L Carbon Dioxide (21-32) mmol/L Anion Gap (3-11) BUN (7-18) mg/dl Creatinine (0.6-1.2) mg/dl Est Cr Clr Drug Dosing ml/min Est GFR ( Amer) Est GFR (Non-Af Amer) BUN/Creatinine Ratio (10-20) Glucose (70-99) mg/dl Calcium (8.5-10.1) mg/dl Magnesium (1.8-2.4) mg/dl Total Bilirubin (0.2-1) mg/dl AST (15-37) U/L ALT (12-78) U/L Alkaline Phosphatase (45-117) U/L Troponin I (0-0.045) ng/ml Total Protein (6.4-8.2) gm/dl Albumin (3.4-5.0) gm/dl Globulin (2.5-4.0) gm/dl Albumin/Globulin Ratio (0.9-2) Lipase (73-393) U/L TSH (0.300-4.500) uIu/ml Free T4 1.14 (0.8-1.6) ng/dl Free T3 2.78 (2.3-4.2) pg/ml Imaging Data Radiologist's Impression: Radiology results as stated below per my review and the radiologist's interpretation: CHEST CTA for PULMONARY ARTERIES CT DOSE: 231.35 mGy.cm HISTORY: Atypical chest pain. Short of breath. Positive d-dimer. TECHNIQUE: Multiaxial CT images of the chest were performed following the intravenous administration of contrast to evaluate the pulmonary arteries. Maximal intensity projection images were also obtained. A dose lowering technique was utilized adhering to the principles of ALARA. COMPARISON STUDY: None. FINDINGS: A 9 mm gallstone. A few scattered subcentimeter hypodense lesions within the liver. These are technically too small to characterize but favor cysts. The spleen and adrenal glands appear unremarkable. Tiny hiatus hernia. Normal esophagus. No mediastinal or hilar lymphadenopathy. The heart is borderline enlarged. No pleural or pericardial effusions. The right thyroid lobe appears surgically absent. No fractures within the visualized osseous structures. Normal caliber thoracic aorta with no evidence for dissection. No filling defects within the pulmonary arteries to suggest pulmonary embolus. The central airways are patent. No pneumothorax. A few bibasilar linear densities consistent with subsegmental atelectasis. Otherwise, the lungs are clear. IMPRESSION: 1. No evidence for pulmonary embolus. 2. Tiny hiatus hernia. 3. Cholelithiasis. Electronically signed by: Ilan Merida M.D. 12/12/2018 8:18 PM ECG Data Attestation: I personally reviewed and interpreted this ECG as follows: Indication: chest pain Rate (beats per minute): 59 Rhythm: sinus bradycardia Findings: + ST depression and + left axis deviation; no PAC, no PVC, no ST elevation and no ectopy Comparison ECG Date: no prior available Additional Comments: REPEAT EKG: Completed at 2103: rate of 64, normal sinus rhythm, no ectopy, no change compared to earlier Blood Pressure Blood Pressure Findings: Elevated blood pressure Blood Pressure Disposition: further management by hospitalist YUE Narrative Patient is a 63-year-old female with a past medical history of thyroid dysfunction and alopecia presenting today with complaint of some midsternal chest pain neck pain and dizziness since yesterday. Denies a history. No fevers or trauma reported. Patient hypertensive upon arrival. Patient states that for several days she has had some muscle aches and believe she may have some fibromyalgia. Complaining since yesterday some worsening pain with exertion and midsternal chest tightness with nausea there is some pain radiation to the neck. She does state however it is somewhat worse with movement of the left neck. No radiation of the arms. No trauma. Pain persists to the upper thoracic back. No leg swelling or recent travel. EKG shows some subtle signs of ST depression. Given aspirin here. Patient declined x-ray. Doubt this is pneumonia. Doubt pneumothorax. Discussed with her concern for possible PE versus ACS. Again with a d-dimer to try to help exclude PE. Basic labs and thyroid functions also obtained. Laboratory studies without any significant anemia or leukocytosis. D-dimer did come back positive. No evidence of hepatitis or pancreatitis. Kidney function is stable. Troponin was negative. Given this I discussed with the patient proceeding with a CT scan to exclude life-threatening pulmonary embolism. Discussed with her concerns regarding EKG although troponin is negative. Patient had a little improvement after the aspirin. Blood pressure is also slightly improved. Declined nitroglycerin. Discussing the risks and benefits she was in agreement to proceed with CT scan. This likely did not show evidence for blood clot. I do believe given the subtle ST changes in her complaints further evaluation and cardiac work-up is indicated. Patient agreeable for admission and hospitalist contacted. Impression & Plan Chest pain Discharge Plan Visit Data *Final* Discharge Date/Time: 12/12/18 22:45 Chief Complaint: Chest Pain ED Provider: Jesús Braswell Discharge Problem: Chest pain Patient Disposition: Being Evaluated by Hospitalist Discharge Problem: Chest pain Qualifiers: Chest pain type: unspecified Qualified Code(s): R07.9 - Chest pain, unspecified The chaseibzahida's documentation has been prepared under my direction and personally reviewed by me in its entirety. I confirm that the note above accurately reflects all work, treatment, procedures, and medical decision making performed by me.
[2018-12-13 07:40] LABS: BUN Creatinine Ratio 20.4 (10-20); Calcium 8.2 mg/dl (8.5-10.1); Creatinine Clr Calc Pharmacy 78.4 ml/min; Est GFR (African American) 107.4; Est GFR (Non-African American) 92.7
[2018-12-13] MEDS ORDERED: TIROSINT PO SCH (08:30)
[2018-12-13] MEDS: ASCORBIC ACID 500 MG TAB PO SCH ×2 (09:56→15:03)
--- NOTE | 2018-12-13 10:00 | Cardiology Consultation ---
Date of Consultation December 13, 2018 Assessment & Plan (1) Chest pain: Her chest discomfort has a number of features which are atypical for coronary artery disease but some features which are somewhat typical. The duration without evidence of ischemia on electrocardiography or enzymes is a little bit unusual, the location and radiation pattern is somewhat typical and worrisome as is the onset with exertion typically. She does not have a lot of risk factors for coronary artery disease but certainly could have it. He could also be due to something like pericarditis although I do not hear a murmur and that is often more consistent. She has been fatigued over the last 3 days which is sometimes associated with coronary artery disease. I believe we need to exclude ischemia as a cause of her symptoms, I am going to schedule a stress echo and if the baseline echo shows a significant abnormality we may cancel the stress portion. I will arrange that for today. (2) HBP (high blood pressure): She does not recall having high blood pressure before, she tells me her blood pressure often runs low in the past. On arrival and for the initial part of her stay her blood pressure was elevated here. Her blood pressure here has now normalized without medications for control. This may or may not be of significance but will need to be watched over the long run. In the absence of other reasons to treat her I would not initiate treatment at this time. History of Present Illness Reason for Consultation: Chest discomfort Attending Physician: Alfonzo Mccoy History of Present Illness This is a 63-year-old woman with no cardiac history although she did have Hurthle cell adenoma of the thyroid and has hypothyroidism, alopecia areata, left upper extremity intermittent edema with negative vascular evaluation in the past, fibromyalgia for which she has used acupuncture. She presents now with a history of exertional atypical chest discomfort starting about 3 days prior to presentation. Around December 10, 2018 she developed intermittent precordial chest discomfort. She describes it as a pressure-like sensation in her chest, it did radiate to her upper back and she noticed that whenever she gets the chest discomfort she also gets head pain. She does not recall having this before, it does have an exertional component but also lasts a long time. She walks daily and noted that she gets it when she walks, although never before December 10, 2018. The episodes last an hour or so when she gets them, they are not associated with shortness of breath although she does feel that she has a little bit of lightheadedness but not presyncope. She also has been extremely fatigued over the last 3 days or so, even doing activities of daily living she feels very tired and fatigued. This seems independent of the intermittent chest discomfort. She does not have palpitations. Her father did have a myocardial infarction in his 60s, she does have high triglycerides by her history but not high cholesterol. She has never had cardiac testing before. Here in the emergency room electrocardiography has been unremarkable, cardiac enzymes x3 are negative for damage. She has been pain-free since her symptoms were relieved shortly after arrival, she feels that taking aspirin and then potassium helped relieve the discomfort. Of note it was present during her initial presentation to the emergency room and initial electrocardiography. Allergies Allergy/AdvReac Type Severity Reaction Status Date / Time codeine Allergy Mild Unknown Unverified 12/12/18 18:02 Sulfa (Sulfonamide Allergy Unknown . Unverified 12/12/18 18:02 Antibiotics) levothyroxine AdvReac Verified 12/12/18 18:02 Home Medications Home Medications Medication Instructions Recorded Confirmed Type ascorbic acid (vitamin C) [Vitamin 3 g PO TID 12/12/18 12/12/18 History C] levothyroxine [Tirosint] 75 mcg PO QAM 12/12/18 12/12/18 History Patient History Medical History Alopecia areata (Acute) Claustrophobia (Acute) Fatigue (Acute) Fibromyalgia (Acute) Hurthle cell adenoma of thyroid (Acute) Hypothyroidism (Acute) Insomnia (Acute) Lymphedema (Acute) Menopause (Acute) Need for hepatitis C screening test (Acute) Osteopenia (Acute) Right knee pain (Acute) Vitamin D deficiency disease (Acute) Diarrhea (Acute) Hypokalemia (Acute) Alopecia H/O: hysterectomy Surgical History H/O partial thyroidectomy Family History Other Cancer Social History Preferred Language: Georgian Instructor Bridge Required: No Beliefs That Will Affect Care: None Current Living Situation: Spouse Feels Safe at Home: Hesitant to Answer Safety Concerns: Feels Safe At This Time Smoking Status: Never smoker Hx Alcohol Use: Yes ("occasionally") Hx Substance Use: No Review of Systems Review of Systems: All systems reviewed & are unremarkable except as noted in HPI & below Physical Exam Physical Exam: Constitutional: Alert, cooperative and in no distress. HEENT: Unremarkable Neck: No jugular venous distention, carotid pulses are normal and equal bilaterally without bruits. Pulmonary: Clear to auscultation bilaterally. Cardiac: Regular rhythm with no murmur, gallop or rub. Abdomen: Soft, nontender with normal bowel sounds. Extremities: No edema. Distal pulses intact. Neurologic: No focal findings. Gait is steady. Skin: No rash, ecchymoses or petechiae. Results & Data Vital Signs (Past 12 Hours) Vital Signs Temp Pulse Resp BP BP Pulse Ox Pulse Ox 12/13/18 07:44 36.8 C 62 18 118/78 97 12/13/18 02:38 36.7 C 59 L 18 117/65 97 12/12/18 23:06 36.9 C 18 134/85 99 12/12/18 23:04 98 12/12/18 22:30 20 133/78 98 Diagnostic Findings Electrocardiograms: She has had 3 electrocardiograms and they all show sinus rhythm with no acute abnormality. Telemetry: Sinus rhythm rate 60 to 70s, no significant arrhythmia PG Care Time/CCT Total # of Minutes Spent Total Time Spent with Patient: Total time spent is greater than 50% in coordination of care (as documented) at patient's floor/unit and/or counseling patient: (1) Chest pain Chest pain type: unspecified Qualified Code(s): R07.9 - Chest pain, unspecified
--- NOTE | 2018-12-13 10:52 | Medical Student H&P ---
Date of Service December 13, 2018 Assessment & Plan (1) Chest pain: Midsternal chest pain with shortness of breath worsened with exertion: -serial cardiac enzymes have shown non-elevated troponin -serial ECGs: initial nonspecific ST abnormalities unchanged since presentation in the ED -Cardiology consult Ordered: Seen by Dr. Garcia who has ordered a stress echo to exclude ischemia Chest pain type: unspecified Qualified Code(s): R07.9 - Chest pain, unspecified Present on Admission?: Yes (2) HBP (high blood pressure): Elevated blood pressure without history of HTN: -PRA and aldosterone levels ordered to evaluate possible causes of secondary HTN (results pending) -BP has normalized (118/78) without the use of pharmacologic treatment -continue monitoring Hypertension type: unspecified Qualified Code(s): I10 - Essential (primary) hypertension Present on Admission?: Yes (3) Hypokalemia: Hypokalemic at time of presentation (3.3): -placed on rhythm monitoring -Potassium chloride 40 mEq x1 PO administered on 12/12 -Potassium normalized to 4.0, Potassium chloride discontinued -Follow up with PCP to recheck potassium level (4) Fatigue: 3-day history of significant fatigue -potassium normalized with administration of potassium chloride -Consider rechecking TSH to determine if levothyroxine dose should be increased -AM cortisol and ACTH levels to test for adrenal insufficiency (AM cortisol: 14.62, ACTH still pending) Fatigue type: unspecified Qualified Code(s): R53.83 - Other fatigue History of Present Illness Chief Complaint: Chest Pain Primary Care Provider: Paulie Emerson MD Madeline is a 63-year-old female with a history of hypothyroidism who presented to [facility] ED on 12/12 with a 3-day history of midsternal chest discomfort radiating to the upper back and neck. On presentation, she admitted to dizziness,SOB, and fatigue, but she denied N/V, fever, chills, or cough. She was also hypertensive with a BP of 150/88. In the ER, an ECG showed nonspecific ST abnormalities, sinus bradycardia, and left axis deviation. A chest CTA was negative for signs of pulmonary embolism, and troponin was not elevated. LFTs and pancreatic enzymes were also normal, but she was hypokalemic at 3.3. The patient declined nitroglycerin, but she was given ASA 81 mg and admitted for further monitoring. On admission, Madeline was placed on telemetry and rhythm monitoring, and serial ECGs, serial cardiac enzymes, and a 2D echocardiogram with doppler were ordered. She was also administered potassium chloride 40 mEq, which has since been discontinued since her potassium is now at 4.0. Due to the combination of hypokalemia and elevated BP without a previous diagnosis of HTN, PRA and aldosterone checks were ordered. Vitamin B12, folate, AM cortisol, and ACTH levels were also ordered due to Madeline's history of fatigue. This morning, Madeline denies any chest pain or discomfort, palpitations, SOB, cough, or lightheadedness. She states that her chest discomfort decreased after ASA administration. Madeline states that her chest discomfort began 3 days ago on Thursday, 12/10. She states that the sensation began as midsternal chest pressure that radiated to her upper back and neck and that was accompanied by a ADAMS. She states that she drank peppermint tea to try to relieve the pain, but it did not provide relief. She says that the pain was present at rest and worsened with walking. When walking up hills or stairs, she states that she felt like she could not take a deep breath. On Thursday, the discomfort continued and Madeline states that she felt very fatigued while cooking. By Thursday morning, Madeline states that she was fatigued to the point of feeling like she could not walk from her driveway to her house. She also states that she felt lightheaded, but she denied a sensation of presyncope. She denies any history of chest dis comfort. Madeline notes that her father of an NE in his 60s. She denies a history of high BP, and she says that her BP usually tends to run low if anything. She also admits to a history of palpitations about 8 years ago. At this time, she says that she would have episodes of a racing, irregular chest sensation that occurred several times per week. She states that she would become lightheaded and that the palpitations would sometimes last all night, which kept her awake. She states that the palpitations stopped occurring without any medical intervention. Since then, she admits to occasional transient palpitations that feel like a forceful beat and do not resemble the racing, irregular beat that she experienced 8 years ago. She says that she has learned how to stop the episodes of palpitations through meditation and other relaxation techniques. Allergies Allergy/AdvReac Type Severity Reaction Status Date / Time codeine Allergy Mild Unknown Unverified 12/12/18 18:02 Sulfa (Sulfonamide Allergy Unknown . Unverified 12/12/18 18:02 Antibiotics) levothyroxine AdvReac Verified 12/12/18 18:02 Home Medications Home Medications Medication Instructions Recorded Confirmed Type Tirosint 75 mcg PO QAM 12/12/18 12/12/18 History ascorbic acid (vitamin C) [Vitamin 3 g PO TID 12/12/18 12/12/18 History C] Past Med/Surg History Medical History Alopecia areata (Acute) Claustrophobia (Acute) Fatigue (Acute) Fibromyalgia (Acute) Hurthle cell adenoma of thyroid (Acute) Hypothyroidism (Acute) Insomnia (Acute) Lymphedema (Acute) Menopause (Acute) Need for hepatitis C screening test (Acute) Osteopenia (Acute) Right knee pain (Acute) Vitamin D deficiency disease (Acute) Diarrhea (Acute) Hypokalemia (Acute) Alopecia H/O: hysterectomy Surgical History H/O oral surgery H/O partial thyroidectomy S/P hemorrhoidectomy S/P hysterectomy with oophorectomy S/P tonsillectomy Family History Grandfather (Paternal) Myocardial infarction Mother Depression Lung cancer Grandfather (Maternal) Diabetes Father Heart disease Other Cancer Social History Preferred Language: Gabonese Communication Ability: Effective Intrusion Analyst Required: No Beliefs That Will Affect Care: None marital status: Current Living Situation: Spouse Feels Safe at Home: Hesitant to Answer Smoking Status: Never smoker Hx Alcohol Use: Yes ("occasionally") Hx Substance Use: No Review of Systems + fatigue and + weakness; no fever, no chills, no sweats and no anorexia no cough, no dyspnea and no pain on inspiration as per Subjective / HPI no abdominal pain, no heartburn, no nausea, no vomiting, no constipation and no diarrhea/loose stools Physical Exam Constitutional: WD/WN, vitals as above Respiratory: normal respiratory effort, lungs clear to auscultation Cardiovascular: RRR, no murmur, no edema Heart Sounds: normal S1 and normal S2; no gallop and no cardiac rub Vessels: normal peripheral pulses; no JVD and no carotid bruit Gastrointestinal (Abdomen): normal bowel sounds, soft, nontender, no hepatosplenomegaly Skin: no rashes, warm and dry Psychiatric: A+Ox3, euthymic affect Results & Data Vital Signs (Past 12 Hours) Vital Signs Temp Pulse Resp BP Pulse Ox Pulse Ox 12/13/18 07:44 36.8 C 62 18 118/78 97 12/13/18 02:38 36.7 C 59 L 18 117/65 97 12/12/18 23:06 36.9 C 18 134/85 99 12/12/18 23:04 98 Code Status & VTE Plan VTE Prophylaxis Plan VTE Prophylaxis will be ordered: Yes Supervising Attestation Medical student note.
[2018-12-17 10:17] LABS: Renin Activity 0.63 ng/mL/h (0.25-5.82)
--- NOTE | 2018-12-21 11:26 | Discharge Summary ---
Date of Service December 13, 2018 Admission HPI Per Admitting Provider Madeline is a 63-year-old female with a history of hypothyroidism who presented to [facility] ED on 12/12 with a 3-day history of midsternal chest discomfort radiating to the upper back and neck. On presentation, she admitted to dizziness,SOB, and fatigue, but she denied N/V, fever, chills, or cough. She was also hypertensive with a BP of 150/88. In the ER, an ECG showed nonspecific ST abnormalities, sinus bradycardia, and left axis deviation. A chest CTA was negative for signs of pulmonary embolism, and troponin was not elevated. LFTs and pancreatic enzymes were also normal, but she was hypokalemic at 3.3. The patient declined nitroglycerin, but she was given ASA 81 mg and admitted for further monitoring. On admission, Madeline was placed on telemetry and rhythm monitoring, and serial ECGs, serial cardiac enzymes, and a 2D echocardiogram with doppler were ordered. She was also administered potassium chloride 40 mEq, which has since been discontinued since her potassium is now at 4.0. Due to the combination of hypokalemia and elevated BP without a previous diagnosis of HTN, PRA and aldosterone checks were ordered. Vitamin B12, folate, AM cortisol, and ACTH levels were also ordered due to Madeline's history of fatigue. This morning, Madeline denies any chest pain or discomfort, palpitations, SOB, cough, or lightheadedness. She states that her chest discomfort decreased after ASA administration. Madeline states that her chest discomfort began 3 days ago on Thursday, 12/10. She states that the sensation began as midsternal chest pressure that radiated to her upper back and neck and that was accompanied by a ADAMS. She states that she drank peppermint tea to try to relieve the pain, but it did not provide relief. She says that the pain was present at rest and worsened with walking. When walking up hills or stairs, she states that she felt like she could not take a deep breath. On Thursday, the discomfort continued and Madeline states that she felt very fatigued while cooking. By Thursday morning, Madeline states that she was fatigued to the point of feeling like she could not walk from her driveway to her house. She also states that she felt lightheaded, but she denied a sensation of presyncope. She denies any history of chest discomfort. Madeline notes that her father of an VT in his 60s. She denies a history of high BP, and she says that her BP usually tends to run low if anything. She also admits to a history of palpitations about 8 years ago. At this time, she says that she would have episodes of a racing, irregular chest sensation that occurred several times per week. She states that she would become lightheaded and that the palpitations would sometimes last all night, which kept her awake. She states that the palpitations stopped occurring without any medical intervention. Since then, she admits to occasional transient palpitations that feel like a forceful beat and do not resemble the racing, irregular beat that she experienced 8 years ago. She says that she has learned how to stop the episodes of palpitations through meditation and other relaxation techniques. Principal Diagnosis chest pain Discharge Exam The patient is awake, alert and oriented 3, well developed and well nourished, normocephalic and atraumatic, lying in bed and in no acute distress. HEENT--PERRL, EOMI, mucous membranes and oropharynx normal. Neck--supple. No JVD. No bruits. Thyroid normal, trachea midline, no adenopathy. Heart--normal S1 and S2. No murmurs, rubs or gallops. Lungs--clear bilaterally, no respiratory distress, no accessory muscle use. Abdomen--normal bowel sounds and soft. Nontender. Nondistended, no hernias or masses, no organomegaly. Extremities--no cyanosis or clubbing. No edema. There are good distal pulses b/l. Dermatologic--normal skin turgor, normal color, no abnormal lymph nodes, no rash. Neurologic--cranial nerves II through XII grossly intact. Rheumatologic--normal range of motion. Psychiatric--normal affect. Discharge Data Allergies Allergy/AdvReac Type Severity Reaction Status Date / Time codeine Allergy Mild Unknown Unverified 12/12/18 18:02 Sulfa (Sulfonamide Allergy Unknown . Unverified 12/12/18 18:02 Antibiotics) levothyroxine AdvReac Verified 12/12/18 18:02 Consultations 12/12/18 20:47 ED Decision to Admit Stat 12/12/18 23:04 Consult Case Management - Discharge Planning Routine 12/13/18 08:55 Consult Cardiology Routine Ordered Studies 12/12/18 19:46 CT angio chest PE protocol Stat Hospital Course (1) Chest pain: Exertional chest pain with shortness of breath accompanying- The patient will be admitted to telemetry for serial cardiac enzymes, serial EKG's, cardiac rhythm monitoring and a 2-D echocardiogram with Dopplers. Likely aggravated by hypokalemia. On day of diascharge, completed exercise echocardiogram stress test which was negative. (2) Elevated blood pressure reading without diagnosis of hypertension: Elevated blood pressure with no previous record of hypertension/hy pokalemia- Give Klor-Con 40 mEq p.o. x1 now. Repeat BMP and magnesium level in a.m. Check a renin and aldosterone level. levels were normal (3) Hypokalemia: See above resolved. (4) Fatigue: Patient already has 2 autoimmune disorders: Hypothyroidism and alopecia areata. We will test her for B12 and folic acid deficiencies. We will also test for adrenal insufficiency with a.m. cortisol and ACTH levels (5) Fibromyalgia: No flareup at this time. Leg aching is most likely secondary to hypokalemia. But should be followed for potential fibromyalgia flare (6) Hypothyroidism: Hypothyroidism/Hurthle cell adenoma of thyroid- Continue levothyroxine sodium (Tirosint) 75 mcg p.o. every morning. Patient is advised to have someone bring her own medication in tomorrow. 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 (9) Alopecia areata: Noted as above Total Time Total Time Spent Total Time Spent (In Minutes): 32 Total Time Includes: Examination of the Patient, Discharge Planning and Medication Reconciliation Discharge Plan Discharge Items Patient Disposition: Home - Self-Care Reason For Visit: PRECORDIAL CHEST PAIN Discharge Diagnosis: Non cardiac chest pain Activity: Resume your previous activity Non-emergency contact: Primary Care Provider Call non-emergency contact if: you have any medication questions Follow-up/Referrals: Paulie Emerson MD [Primary Care Provider] - 12/21/18 3:00 pm (Please, follow up with Dr. Camarena on ThursdayDecember 21 at 3:00 pm. *If you need to change this appointment, call the office at [phone].) Diet: Regular Addtl Attending Provider Instructions: recommend followup with PCP in 1-2 weeks Pending Studies at Discharge: No Stand-Alone Forms: Call Back Authorization, [facility] Medications and DC Order Prescriptions: Continued Tirosint 75 mcg capsule 75 mcg PO QAM RF: 0 ascorbic acid (vitamin C) [Vitamin C] 1,000 mg Tablet 3 g PO TID RF: 0 Discharge Orders: Discharge Order (Routine); Ordered 12/13/18 Ordered By: Alfonzo Mccoy Admission Data Admit Date/Time: 12/12/18 22:05 Attending Provider: Alfonzo Mccoy Admit Provider: Feliciano Mireles Primary Care Provider: Paulie Emerson V. Other Providers: Feliciano Mireles ; Burton Garcia Other Interventions: Discharge Summary Assessment (RN) Last Done: 12/13/18 17:11 DC Date/Time DO NOT enter until pt leaves facility: 12/13/18 18:05
== END 2018-12-13 18:05 | disposition home or self-care (01) ==
LOC: ED 16:39 → 2S 16:39 → SUATTDRO 22:05 → 2S 22:45